=== PATIENT | male | born 2000 | race Caucasian/White ===

== ENCOUNTER 2021-10-06 11:04 | Emergency (ER) | payer OTHER ==
[~2021-10-06] VITALS: Ht 177.8 cm; Wt 86.2 kg
[2021-10-06 14:21] LABS: INFLUENZA A ANTIGEN Negative (Negative); INFLUENZA B ANTIGEN Negative (Negative)
[2021-10-06 14:32] VITALS: BP 143/92
--- NOTE | 2021-10-07 12:19 | EKG ---
[place] [address] ELECTROCARDIOGRAM REPORT Name: FAROOQFRANK BECK Arlette Room: [facility]#: [id number] Admission: 10/06/21 Attend Phys: Discharge: 10/06/21 Date of : 00 Date of Service: 10/06/21 1114 Report #: [id number] THIS REPORT FOR: //name// [facility] ED Test Date: 2021-10-06 Test Time: 11:14:56 Pat Name: FRANK FAROOQ Department: Room: Gender: [employer]ist: : [id number] Requested By: Marie Francois Order Number: [id number] MD: Jr Orozco Measurements Intervals [place] Rate: 111 P: 54 ND: 141 QRS: 63 QRSD: 88 T: 38 QT: 306 QTc: 416 Interpretive Statements Sinus tachycardia ST elev, probable normal early repol pattern No previous ECG available for comparison Electronically Signed On 10-07-2021 12:19:27 INFORMATION SECURITY MANAGER by Jr Orozco [email or web address] <ELECTRONICALLY SIGNED> By: Jr Orozco MD, [facility] 10/07/21 1219 1114 1114 Jr Orozco MD, [facility] /EPI
== END 2021-10-06 14:33 | disposition home or self-care (01) ==
LOC: M.ERS 11:04
PROVIDERS: Physician Assistant
DX: J02.9 Acute pharyngitis, unspecified (principal); R06.02 Shortness of breath